=== PATIENT | female | born 1930 | race Caucasian/White ===

== ENCOUNTER 2017-10-15 15:33 | Emergency (ER) | payer MEDICARE, OTHER ==
[2017-10-15 16:34] LABS: Hematocrit 32.5 % (36.0-47.0); Mean Platelet Volume 7.7 fL (7.4-10.4); Red Blood Cell (RBC) Count 3.09 mill/uL (4.20-5.40); White Blood Cell (WBC) Count 7.9 thou/uL (4.8-10.8)
[2017-10-15 16:53] LABS: ALT (SGPT) 24 U/L (8-55); AST (SGOT) 24 U/L (5-34); Alkaline Phosphatase 91 U/L (40-150); Anion Gap 14 mmol/L (10-20); BUN (Urea Nitrogen) 25 mg/dL (9.8-20.1); Bilirubin, Total 0.2 mg/dL (0.2-1.2); Calc. Creatinine Clearance 0 mL/min (70-130); Calcium 8.9 mg/dL (7.8-10.44); Carbon Dioxide 27 mmol/L (23-31); Chloride 104 mmol/L (98-107); Estimated GFR-MDRD 59; Protein, Total 7.5 g/dL (6.0-8.3)
[2017-10-15 16:55] LABS: #Eosinphils 0.2 thou/uL (0.0-0.7); #Monocytes 0.4 thou/uL (0.11-0.59); #Neutrophils 6.3 thou/uL (1.40-6.50); %Basophils 0.3 % (0.0-1.0); %Eosinophils 2.1 % (0.0-10.0); %Lymphocytes 12.7 % (21.0-51.0); %Monocytes 5.1 % (0.0-10.0); Toxic Granulation SLIGHT
--- NOTE | 2017-10-16 08:08 | CON ---
DATE OF CONSULTATION: 10/15/2017 REFERRING PROVIDER: Yvonne Rincon, nurse practitioner HISTORY OF PRESENT ILLNESS: The patient is an 87-year-old female who presented to the emergency room with heavy vaginal bleeding. The patient has had a donut pessary placed at the end of September afte r 8 months rest for bladder prolapse and began having bleeding today at [facility]. I was asked to come and remove the pessary and evaluate the vaginal cuff. Upon the presentation to the patient, the hemanth ent was supine, alert, and oriented. She reports that today at [facility] is when she first noticed the vaginal bleeding and had a "hand-sized blood clot." PHYSICAL EXAMINATION: VITAL SIGNS: Blood pressure is 113/65, heart rate of 98, respiratory rate of 20, satting 97% on room air. GENERAL: She appears to be in no acute distress. Attention was placed vaginally where she had bleeding on her perineum with the aide of the speculum. Initially on digital exam, the patient was noted to have a large donut pessary, which was removed wi th some difficulty followed by a speculum exam. The patient during the exam used a total of 20 Proct o swabs saturated with blood. Once the erosion was identified or thought to be identified as the exa m was quite difficult, a single silver nitrate stick was then applied to the area and pressure was ap plied, which seemed to significantly decrease her bleeding. At this point in time, the patient and h er family were comfortable let having her go home and have pad counts at the house to see if her blee ding continues with instructions to come back should her bleeding continue severe and to notify her children's of [facility] [employer]LLED [employer]ING MACHINE OPERATOR doctor tomorrow.
--- NOTE | 2017-10-16 16:34 | CON ---
DATE OF CONSULTATION: 10/16/2017 HISTORY OF PRESENT ILLNESS: She is an 87-year-old demented female, who apparently was brou ght into the hospital with vaginal bleeding. She is unable to recollect exactly what transpired. She has had a loose bowel movement. She apparently went to pentecostalism. Clearly history is sketchy aisha se of her dementia. She was seen in the ICU, because she was hypertensive. Her blood pressure is 128/80 right now. She is on no pressors. PAST MEDICAL HISTORY: Pertinent otherwise for chronic pain, dementia, high cholesterol, tremors, pre vious coronary artery disease, apparently aortic stenosis. PAST SURGICAL HISTORY: Previous surgeries including lumbar cervical laminectomy, carpal tunnel, prev ious aortic surgery, TAVR. SOCIAL HISTORY: No alcohol or tobacco abuse. LIST OF MEDICINES: Tramadol, simvastatin, primidone 250, vitamin, Lasix 40, aspirin. REVIEW OF SYSTEMS: Difficult to obtain because of her dementia. PHYSICAL EXAMINATION: GENERAL: She is in no distress. VITAL SIGNS: Blood pressure 128/80, pulse rate of 80, and sats 95%. CHEST: No crackles, rubs, or wheezing. CARDIAC: Normal S1, S2. No gallops. ABDOMEN: Soft. LABORATORY DATA: Hemoglobin and hematocrit is stable at 9 and 30. Lytes are normal, potassium 3.2. IMPRESSION: 1. Vaginal bleeding is seen by SPORTS LEADERSHIP INSTRUCTOR, awaiting input and treatment from them. 2. Dementia. 3. Hypertension, resolved. 4. Vaginal bleeding. 5. Status post aortic stenosis surgery. 6. Degenerative joint disease. She appears to be stable enough to be transferred out of the ICU, early ambulation. DISPOSITION: As per primary care physician.
== END 2017-10-15 18:37 | disposition home or self-care (01) ==
LOC: ERS 15:33
DX: N93.9 Abnormal uterine and vaginal bleeding, unspecified (principal); N89.8 Other specified noninflammatory disorders of vagina; F03.90 Unspecified dementia, unspecified severity, without behavioral disturbance, psychotic disturbance, mood disturbance, and anxiety; I10 Essential (primary) hypertension; I25.10 Atherosclerotic heart disease of native coronary artery without angina pectoris; Z79.899 Other long term (current) drug therapy; Z79.82 Long term (current) use of aspirin
CPT/HCPCS: 80053; 85025

== ENCOUNTER 2017-10-15 20:08 | Inpatient (IN) | payer MEDICARE, OTHER ==
[2017-10-15 21:42] LABS: #Basophils 0.1 thou/uL (0.0-0.2); #Eosinphils 0.1 thou/uL (0.0-0.7); #Monocytes 0.4 thou/uL (0.11-0.59); #Neutrophils 6.4 thou/uL (1.40-6.50); %Basophils 0.7 % (0.0-1.0); %Eosinophils 1.2 % (0.0-10.0); %Lymphocytes 12.9 % (21.0-51.0); %Monocytes 4.9 % (0.0-10.0); Hematocrit 26.6 % (36.0-47.0); Mean Platelet Volume 8.1 fL (7.4-10.4); Red Blood Cell (RBC) Count 2.49 mill/uL (4.20-5.40)
[2017-10-15 21:46] LABS: Lactic Acid - Sepsis 2.1 mmol/L (0.5-2.2)
[2017-10-15 21:54] LABS: ALT (SGPT) 22 U/L (8-55); AST (SGOT) 28 U/L (5-34); Alkaline Phosphatase 78 U/L (40-150); Anion Gap 13 mmol/L (10-20); BUN (Urea Nitrogen) 24 mg/dL (9.8-20.1); Bilirubin, Total 0.2 mg/dL (0.2-1.2); Calc. Creatinine Clearance 0 mL/min (70-130); Calcium 7.8 mg/dL (7.8-10.44); Carbon Dioxide 24 mmol/L (23-31); Chloride 107 mmol/L (98-107); Estimated GFR-MDRD 67; Globulin 3.2 g/dL (2.4-3.5); Protein, Total 6.1 g/dL (6.0-8.3)
[2017-10-15 21:57] LABS: Troponin I 0.011 ng/mL (< 0.028)
[2017-10-15] MEDS ORDERED: Acetaminophen 325 MG TAB ONE (23:03)
[2017-10-16] MEDS: Primidone 250 MG TAB PO SCH ×2 (02:12→02:26)
[2017-10-16] MEDS ORDERED: Dextrose 5 % And 0.9 % NaCl 1,000 ML IV SCH (02:30)
[2017-10-16 02:39] VITALS: BMI 25.1
[2017-10-16] MEDS ORDERED: Albumin 25% 25 GM/100 ML BOT IVPB SCH (03:30)
[2017-10-16 03:47] LABS: Hematocrit 28.5 % (36.0-47.0)
[2017-10-16 04:03] LABS: Anion Gap 8 mmol/L (10-20); BUN (Urea Nitrogen) 18 mg/dL (9.8-20.1); BUN/Creatinine Ratio 26.47; Calc. Creatinine Clearance 61 mL/min (70-130); Calcium 7.1 mg/dL (7.8-10.44); Carbon Dioxide 22 mmol/L (23-31); Chloride 115 mmol/L (98-107); Estimated GFR-MDRD 81; Magnesium 1.4 mg/dL (1.6-2.6); Phosphorus 2.9 mg/dL (2.3-4.7)
[2017-10-16] MEDS ORDERED: D5 1/2 NS w/20 mEq KCL 1,000 ML IV SCH (04:30)
[2017-10-16] MEDS ORDERED: Magnesium 2 GM/NS 0.9% 50 ML 2 GM in Premix Bag 1 BAG IVPB SCH (04:30)
[2017-10-16] MEDS ORDERED: Lacri-Lube Opth Oint 3.5 GM TUBE EA EYE PRN (04:42)
[2017-10-16] MEDS ORDERED: Ondansetron HCl/PF 4 MG/2 ML Vial IVP PRN (04:45)
[2017-10-16] MEDS ORDERED: Sodium Chloride 0.9% 500 ML IV SCH (04:45)
[2017-10-16] MEDS ORDERED: Ondansetron ODT 4 MG TAB PO PRN (04:45)
[2017-10-16] MEDS ORDERED: Calcium Carbonate 500 MG ChewTAB PO PRN (04:45)
[2017-10-16] MEDS ORDERED: DOPamine 400 MG/D5W 250 ML 250 ML IVPB SCH (04:45)
[2017-10-16] MEDS ORDERED: Senokot 8.6 MG TAB PO PRN (04:45)
[2017-10-16] MEDS ORDERED: Acetaminophen 650 MG Suppository PR PRN (04:45)
[2017-10-16] MEDS ORDERED: Acetaminophen 325 MG TAB PO PRN (04:45)
[2017-10-16] MEDS ORDERED: Bisacodyl 10 MG SUPP PR PRN (04:45)
--- NOTE | 2017-10-16 05:03 | CON ---
DATE OF CONSULTATION: 10/15/2017 The patient was seen and examined on 10/15/2017 in the emergency. REASON FOR CONSULTATION: Medical management. HISTORY OF PRESENT ILLNESS: Patient is an 87-year-old female with coronary artery disease, status po st stent; severe aortic stenosis, status post TAVR; hypertension; hyperlipidemia; and dementia, who p resented to the emergency room after a syncopal episode. The patient was seen in the emergency room earlier today with vaginal bleeding that was controlled. She was released home. When she reached home, she had a syncopal episode that was brief. No chest p ain, palpitations, focal neurologic deficit reported. She felt nauseous and had some abdominal disco mfort. For this reason, the patient was brought to the emergency room. Her blood pressure at home w as in 80s per EMS. In the emergency room, blood pressure remained between 70-90 systolic with temperature 97.7, respirat ions 20, pulse of 94 with O2 saturation 97% on room air. EKG showed normal sinus rhythm with right b undle branch block and left anterior fascicular block. The patient was evaluated by COMMERCIAL OR INSTITUTIONAL CLEANER and bleed ing was controlled. Two units of PRBC have been ordered. Her initial troponin was negative. She re ceived 4 liters normal saline in the emergency room. PAST MEDICAL HISTORY: 1. Hypertension 2. Hyperlipidemia. 3. Coronary artery disease, status post left anterior descending stent placement in 2012. 4. Dementia. 5. Former smoker. 6. History of vaginal bleeding in the past. 7. Degenerative joint disease. PAST SURGICAL HISTORY: 1. Multiple back surgeries. 2. Cataract surgery. 3. Removal of basal cell carcinoma on the nose. 4. Hysterectomy. 5. Appendectomy. 6. Septoplasty. 7. Suboccipital craniectomy. ALLERGIES: The patient is not allergic to any medications. CURRENT HOME MEDICATIONS: To be verified with her family. FAMILY HISTORY: Positive for mother with coronary artery disease at age of 75. SOCIAL HISTORY: She is , lives with her family. She is FULL CODE. Her family makes a decisi on. She ambulates with the help of a rolling walker. REVIEW OF SYSTEMS: Cannot be obtained from the patient due to underlying dementia. PHYSICAL EXAMINATION: VITAL SIGNS: As discussed above. GENERAL: An 87-year-old female in Trendelenburg position. Denies any chest discomfort. HEENT: Head, atraumatic, normocephalic. Sclerae are anicteric. Dry mucous membrane. Pale conjunct ivae. NECK: Supple. No JVD, no carotid bruit. LUNGS: Showed diminished air entry at bilateral bases. No wheezing, rales, or rhonchi. HEART: S1, S2 present. Regular rate and rhythm. No rubs or gallops. 2/6 systolic murmur over the mitral area. ABDOMEN: Soft and nontender. Bowel sounds present. EXTREMITIES: Trace edema in bilateral lower extremities. SKIN: Warm and dry. LYMPH NODES: No palpable lymph nodes in the neck. PERIPHERAL VASCULAR: Radial pulses palpable bilaterally. MUSCULOSKELETAL: No joint swelling or tenderness. PSYCHIATRY: At baseline. LABORATORY AND X-RAY FINDINGS: CBC showed WBC of 8.0 with hemoglobin 8.6. After 2 units of PRBC, he r hemoglobin is 9.4. Chemistries showed sodium 140 with potassium 4, chloride 107, bicarbonate 24, B UN 24, creatinine 0.81. Repeat potassium this morning is 3.2. Magnesium 1.4. Cortisol was 9.3. La ctic acid was normal. Troponins were negative. EKG by my review as discussed above. Telemetry matthew lockhart by my review showed sinus rhythm. IMPRESSION: 1. Vaginal bleeding management per [employer]ER[employer] IN[employer]UTIONAL CLE[employer]ER. 2. Anemia secondary to acute blood loss. 3. Syncopal episode secondary to hypotension from vaginal bleeding. 4. History of hypertension. 5. Hyperlipidemia. 6. Dementia. 7. Coronary artery disease, status post left anterior descending stent placement. 8. History of severe aortic stenosis, status post transcatheter aortic valve replacement. 9. Dehydration, improved with IV fluids. 10. Electrolyte imbalance. Patient has hypokalemia and hypomagnesemia. 11. Former smoker. 12. Degenerative joint disease. PLAN: The patient will be monitored in the intermediate care unit. We will consider low dose dopami ne if blood pressure continues to stay on the lower side. We will give her 1 dose of albumin 25%. W e will replace electrolytes. We will repeat troponin in a.m. We will consider cardiology consultati on if the troponins abnormal. She normally follows Dr. Arredondo. Plan of care was discussed with the daughter at the bedside. She stated understanding. Thank you Dr. Sim for this consultation. We will follow with you.
[2017-10-16] MEDS: D5 1/2 NS w/20 mEq KCL 1,000 ML IV SCH ×3 (05:14→17:01)
--- NOTE | 2017-10-16 08:14 | HP ---
DATE OF ADMISSION: 10/16/2017 CHIEF COMPLAINT: Syncope with vaginal bleeding. HISTORY OF PRESENT ILLNESS: The patient is an 87-year-old female who was seen in the emergency room earlier for vaginal bleeding upon which I was consulted. The patient had a pessary in place that was placed at the end of 09/2017 which was successfully removed and got the bleeding under control. Mireya vo subsequently discharged home with instructions for PAD counts, and unfortunately returned back t o the emergency room several hours later after a syncopal episode. The patient was noted to have hem oglobin drop of 2 points during those 2 visits and given her medical history, patient is being transf used. Given my previous contact with the patient, I am primary on this admission. The patient is di zzy and had a single episode at home with short duration. Otherwise, she has no complaints. Her hamzah ghter reports that her vaginal bleeding since the first visit has stopped and is no longer a concern. Patient denies chest pain or vaginal bleeding. Patient has some baseline dementia making a persona l history of difficulty except for what the patient's daughter can share. Patient reports that her m other felt nauseous at home. Upon arrival to the emergency room, EMS reported that she had blood pre ssures in the 80s systolic and had abnormal EKG changes. The emergency physician has ordered 2 units of packed red blood cells. Her initial cardiac enzymes were all negative. PAST MEDICAL HISTORY: High blood pressure, elevated cholesterol, coronary artery disease with stent placed in 2012, dementia, and history of vaginal bleeding. PAST SURGICAL HISTORY: She has had multiple back surgeries, cataract surgery, surgery basal cell car cinoma on the nose, hysterectomy, appendectomy, and stent placement. ALLERGIES: She has no known allergies. SOCIAL HISTORY: She lives with her family who makes her medical decisions. REVIEW OF SYSTEMS: Per HPI. PHYSICAL EXAMINATION: VITAL SIGNS: At the time of my evaluation, the patient had blood pressures in the 90s systolic over 60s with heart rate of 67, respiratory rate of 20, satting 99% on room air. GENERAL: She appears to be in no acute distress. She is lying in reverse Trendelenburg, comfortable and I confirmed with the patient's daughter that her vaginal bleeding has resolved and has not seem to be present any longer. ASSESSMENT AND PLAN: The patient is an 87-year-old female with acute vaginal bleeding that has resol jackelyn since her last previous visit in the emergency room; however, patient has returned with syncopal episode and abnormal EKG findings and acute blood loss anemia in the presence of history of cardiac h istory. I consulted Internal Medicine to manage this patient and the emergency room physician has al ready ordered 2 units of packed red blood cells. At this point should her vaginal bleeding return, reta ferrer would manage resolution of that problem. However, given her other medical conditions will be defer ring all management to the Internal Medicine team and will referring disposition today.
[2017-10-16] MEDS ORDERED: FLU VACC TS2017-18 (>65YR) 0.5 ML SYRINGE IM ONE (09:00)
[2017-10-16 09:24] LABS: Troponin I 0.019 ng/mL (< 0.028)
[2017-10-16] MEDS: Famotidine 20 MG TAB PO SCH ×2 (09:59→20:42)
[2017-10-16] MEDS: Docusate 100 MG CAP PO SCH ×2 (09:59→20:43)
--- NOTE | 2017-10-16 14:47 | PDOC.PN ---
- Subjective Encounter Start Date: 10/16/17 Encounter Start Time: 14:45 Subjective: feels better. eager to go home -: denies any AP,nausea,dysuria - Objective Resuscitation Status: Resuscitation Status FULL:Full Resuscitation MAR Reviewed: Yes Vital Signs & Weight: Vital Signs (12 hours) Temp 10/16/17 12:00 98.1 F 10/16/17 08:00 97.4 F L Weight Weight 151 lb 0.266 oz Most Recent Monitor Data Heart Rate from ECG 80 NIBP 92/39 NIBP BP-Mean 63 Respiration from ECG 22 SpO2 99 I&O: 10/15/17 10/16/17 10/17/17 06:59 06:59 06:59 Intake Total 885 290 Output Total 1 Balance 885 289 Result Diagrams: 10/16/17 08:43 10/16/17 03:28 Additional Labs: Laboratory Tests 10/15/17 10/15/17 10/16/17 16:20 20:45 03:28 Hgb 10.7 L 8.6 L 9.4 L 10/16/17 08:43 Hgb 9.7 L Phys Exam - Physical Examination Constitutional: NAD pale HEENT: PERRLA, moist MMs, sclera anicteric, oral pharynx no lesions dry MM Neck: no nodes, no JVD, supple, full ROM Respiratory: no wheezing, no rales, no rhonchi, clear to auscultation bilateral Cardiovascular: RRR, no significant murmur Gastrointestinal: soft, non-tender, no distention, positive bowel sounds Musculoskeletal: no edema, pulses present Neurological: non-focal, normal sensation, moves all 4 limbs Psychiatric: normal affect, A&O x 3 Skin: no rash Dx/Plan (1) Syncope and collapse Code(s): R55 - SYNCOPE AND COLLAPSE Status: Acute (2) Blood loss anemia Code(s): D50.0 - IRON DEFICIENCY ANEMIA SECONDARY TO BLOOD LOSS (CHRONIC) Status: Acute (3) Hypovolemic shock Code(s): R57.1 - HYPOVOLEMIC SHOCK Status: Resolved (4) Vagina bleeding Code(s): N93.9 - ABNORMAL UTERINE AND VAGINAL BLEEDING, UNSPECIFIED Status: Acute (5) Hypokalemia Code(s): E87.6 - HYPOKALEMIA Status: Acute (6) CAD (coronary artery disease) Code(s): I25.10 - ATHSCL HEART DISEASE OF [place] CORONARY ARTERY W/O ANG PCTRS Status: Chronic (7) HLD (hyperlipidemia) Code(s): E78.5 - HYPERLIPIDEMIA, UNSPECIFIED Status: Chronic (8) Dementia Code(s): F03.90 - UNSPECIFIED DEMENTIA WITHOUT BEHAVIORAL DISTURBANCE Status: Chronic (9) Hypomagnesemia Code(s): E83.42 - HYPOMAGNESEMIA Status: Acute - Plan DVT proph w/SCDs H/H stable. BP stable.OK to transfer out of CCU.cont IVF -: manamgement of Vaginal bleed per OB.S/P PRBC -: cont home meds as below. reviewed. -: am labs.IM team will follow. -: replace and recheck lytes * . Review of Systems - Review of Systems Constitutional: Weakness, Malaise. negative: Fever, Chills, Sweats, Other Respiratory: negative: Cough, Dry, Shortness of Breath, Hemoptysis, SOB with Excertion, Pleuritic Pain, Sputum, Wheezing Cardiovascular: negative: Chest Pain, Palpitations, Orthopnea, Paroxysmal Noc. Dyspnea, Edema, Light Headedness, Other Gastrointestinal: negative: Nausea, Vomiting, Abdominal Pain, Diarrhea, Constipation, Melena, Hematochezia, Other Genitourinary: negative: Dysuria, Frequency, Incontinence, Hematuria, Retention , Other Musculoskeletal: negative: Neck Pain, Shoulder Pain, Arm Pain, Back Pain, Hand Pain, Leg Pain, Foot Pain, Other Neurological: negative: Weakness, Numbness, Incoordination, Change in Speech, Confusion, Seizures, Other - Medications/Allergies Allergies/Adverse Reactions: Allergies Allergy/AdvReac Type Severity Reaction Status Date / Time No Known Allergies Allergy Verified 03/04/14 08:31 Medications: Current Medications Acetaminophen (Tylenol) 650 mg ME Q4H PRN PRN Reason: Headache/Fever or Pain Acetaminophen (Tylenol) 650 mg PO Q4H PRN PRN Reason: Headache/Fever or Pain Albuterol/Ipratropium (Duoneb) 3 ml NEB Q6H PRN PRN Reason: SOB &/or Wheezing Bisacodyl (Dulcolax) 10 mg ME Q24H PRN PRN Reason: Constipation Calcium Carbonate (Tums) 1,000 mg PO Q4H PRN PRN Reason: Heartburn or Indigestion Docusate Sodium (Colace) 100 mg PO BID [facility] Last Admin: 10/16/17 09:59 Dose: 100 mg Famotidine (Pepcid) 20 mg PO BID [facility] Last Admin: 10/16/17 09:59 Dose: 20 mg Dopamine HCl/Dextrose (Dopamine/D5w) 250 mls @ 6.422 mls/hr IVPB INF JEFFREY; 2.5 MCG/KG/MIN PRN Reason: Protocol Potassium Chloride/Dextrose/Sod Cl (D5 1/2 Ns W/20 Meq Kcl) 1,000 mls @ 125 mls /hr IV .Q8H [facility] Last Admin: 10/16/17 05:14 Dose: 1,000 mls Mineral Oil/White Petrolatum (Lacri-Lube Ointment) 0 gm EA EYE PRN PRN PRN Reason: Dry Eyes Ondansetron HCl (Zofran Odt) 4 mg PO Q6H PRN PRN Reason: Nausea/Vomiting Ondansetron HCl (Zofran) 4 mg IVP Q6H PRN PRN Reason: Nausea/Vomiting Potassium Chloride (Klor-Con) 20 meq PO BID[facility] Stop: 10/16/17 17:01 Last Admin: 10/16/17 09:58 Dose: 20 meq Senna (Senokot) 2 tab PO HSPRN PRN PRN Reason: Constipation
[2017-10-16] MEDS ORDERED: Atorvastatin Calcium 20 MG TAB PO SCH (21:00)
[2017-10-17] MEDS: D5 1/2 NS w/20 mEq KCL 1,000 ML IV SCH ×2 (02:41→04:52)
[2017-10-17 05:42] LABS: #Eosinphils 0.2 thou/uL (0.0-0.7); #Lymphocytes 0.9 thou/uL (1.20-3.40); #Monocytes 0.3 thou/uL (0.11-0.59); #Neutrophils 3.6 thou/uL (1.40-6.50); %Basophils 0.7 % (0.0-1.0); %Eosinophils 3.8 % (0.0-10.0); %Lymphocytes 17.4 % (21.0-51.0); %Monocytes 6.2 % (0.0-10.0); Hematocrit 29.7 % (36.0-47.0); Mean Platelet Volume 7.6 fL (7.4-10.4); Red Blood Cell (RBC) Count 2.88 mill/uL (4.20-5.40)
[2017-10-17 06:19] LABS: ALT (SGPT) 16 U/L (8-55); AST (SGOT) 18 U/L (5-34); Alkaline Phosphatase 61 U/L (40-150); Anion Gap 9 mmol/L (10-20); BUN (Urea Nitrogen) 11 mg/dL (9.8-20.1); Bilirubin, Total 0.2 mg/dL (0.2-1.2); Calc. Creatinine Clearance 66 mL/min (70-130); Carbon Dioxide 20 mmol/L (23-31); Chloride 115 mmol/L (98-107); Estimated GFR-MDRD Greater than 90; Globulin 2.7 g/dL (2.4-3.5); Phosphorus 2.2 mg/dL (2.3-4.7); Protein, Total 5.3 g/dL (6.0-8.3)
[2017-10-17] MEDS: Famotidine 20 MG TAB PO SCH (07:56)
[2017-10-17] MEDS: Docusate 100 MG CAP PO SCH (07:56)
[2017-10-17 08:33] VITALS: TEMP 97.8
[2017-10-17 10:46] VITALS: BP 159/70
--- NOTE | 2017-10-17 12:42 | DIS ---
DATE OF DISCHARGE: 10/17/2017 ADMITTING DIAGNOSES: Symptomatic anemia and vaginal bleeding. DISCHARGE DIAGNOSES: Symptomatic anemia and vaginal bleeding. Vaginal bleeding improved. CONSULTATIONS: Internal Medicine. PROCEDURE: Blood transfusion. HOSPITAL COURSE: The patient is an 87-year-old female who represented yesterday to the emergency [facility] after a syncopal episode following a previous visit to the emergency room for vaginal bleeding and pessary removal at which time she lost about 200 mL of blood in the emergency room. Upon representat ion, the patient was noted to have a 2 point drop in her hemoglobin and that given her reported sympt oms, the decision was made to transfuse her 2 units of packed red blood cells. Internal Medicine was consulted for management of her medical care given her heart history and other baseline medical cond itions. The patient has now received 2 units of packed red blood cells and electrolytes have been no rmalized. The patient and nurse both reported the bleeding is scant which has been the case since he r representation. The patient this morning; vital signs, blood pressure is 113/66, temperature 97.9, pulse is 76, respi ratory rate 20, satting 98% on room air. She appears to be in no acute distress. She is interactive and cooperative and has strong desires to go home and is asking to speak to her son. Hemoglobin upon discharge is 9.8, hematocrit 29.7, platelet count of 148,000. Her sodium, potassium and creatinine are all within normal limits. LFTs are within normal limits. Magnesium and calcium w ithin normal limits. The patient is being discharged to home and has instructions to follow up with her ACID CLEANER in the next 2-3 weeks for followup on this pessary this has since been removed and her vag inal erosions. In the meantime, she has been instructed to use her estrogen cream twice a day instea d of once a day. She also will need to follow up with her primary care physician as scheduled. The patient can resume all home medications and has no new medications from this admission.
--- NOTE | 2017-10-17 13:44 | PDOC.EVN ---
Event Note - Event Note Event Note: Pt discharged by primary team. Chart reviewed. care discussed with nurse. Pt was taken off of IVF and BP monitored w/o it. BP improved to SBP>150. OT,PT offered with HH but family declined. OK to DC home w family from IM stand point.instructed to monitor BP at home and continue to hold anti-hypertensives untill seen ny PCP. Family verbalized understanding
--- NOTE | 2017-11-04 10:43 | EKG ---
Test Reason : Blood Pressure : / mmHG Vent. Rate : 094 BPM Atrial Rate : 094 BPM P-R Int : 176 ms QRS Dur : 122 ms QT Int : 436 ms P-R-T Axes : 031 -56 -22 degrees QTc Int : 545 ms Normal sinus rhythm Right bundle branch block Left anterior fascicular block Bifascicular block Abnormal ECG Confirmed by SHIRLEY Campbell, PACO ([id number]), editor newspaper BRITNEY SHARP ([id number]) on 11/04/2017 10:43:28 AM Referred By: Confirmed By:PACO WATSON M.D.
== END 2017-10-17 11:42 | disposition home or self-care (01) | DRG 760 ==
LOC: ERS 20:08 → CCU 22:46 → T4-A 10-16 16:11
PROVIDERS: ADMIT Obstetrics & Gynecology; ATTEND Obstetrics & Gynecology
PROC: 30233N1 Transfusion of Nonautologous Red Blood Cells into Peripheral Vein, Percutaneous Approach (ICD-10-PCS; principal; 2017-10-15)
DX: N93.9 Abnormal uterine and vaginal bleeding, unspecified (principal); R57.1 Hypovolemic shock; I95.9 Hypotension, unspecified; D62 Acute posthemorrhagic anemia; F03.90 Unspecified dementia, unspecified severity, without behavioral disturbance, psychotic disturbance, mood disturbance, and anxiety; E83.42 Hypomagnesemia; Z90.710 Acquired absence of both cervix and uterus; I25.10 Atherosclerotic heart disease of native coronary artery without angina pectoris; Z95.2 Presence of prosthetic heart valve; E78.5 Hyperlipidemia, unspecified; E87.6 Hypokalemia; M19.90 Unspecified osteoarthritis, unspecified site
CPT/HCPCS: 36415; 36430; 51702; 80053; 80069; 82533; 82553; 83605; 83735; 84100; 84484; 85014; 85018; 85025; 85049; 86850; 86900; 86901; 93005; 96360; 96361; 99284; G8978-GP-CJ; G8979-GP-CJ; G8980-GP-CJ; J3475; P9016; P9047